=== PATIENT | male | born 1970 | race Hispanic/Latino ===

== ENCOUNTER 2021-10-30 08:06 | Day surgery (SDC) | payer SELFPAY ==
[~2021-10-30] VITALS: Ht 180.3 cm; Wt 131.5 kg
[~2021-10-30 08:06] MED LIST: BACTRIM DS1 TAB PO; LISINOP/HCTZ1 TAB PO
[2021-10-30 09:55] VITALS: BP 117/73
== END 2021-10-30 10:17 | disposition home or self-care (01) | DRG 951 ==
LOC: ENDO 08:06
PROVIDERS: ATTEND Surgery
PROC: 0DBP8ZX Excision of Rectum, Via Natural or Artificial Opening Endoscopic, Diagnostic (ICD-10-PCS; principal; 2021-10-30)
PROC: 0DBN8ZX Excision of Sigmoid Colon, Via Natural or Artificial Opening Endoscopic, Diagnostic (ICD-10-PCS; 2021-10-30)
DX: Z12.11 Encounter for screening for malignant neoplasm of colon (principal); K61.0 Anal abscess; K57.30 Diverticulosis of large intestine without perforation or abscess without bleeding; D12.5 Benign neoplasm of sigmoid colon; D12.8 Benign neoplasm of rectum; I10 Essential (primary) hypertension